=== PATIENT | female | born 1990 | race Caucasian/White ===

== ENCOUNTER → 2016-12-17 | Outpatient (REF) | payer BC | LOC: M LAB REF 09:54 | PROVIDERS: ATTEND Physician Assistant | DX: R30.0 Dysuria (principal) ==

== ENCOUNTER → 2017-01-03 | Outpatient (REF) | payer BC | LOC: M LAB REF 09:41 | PROVIDERS: ATTEND Physician Assistant | DX: R30.0 Dysuria (principal) ==

== ENCOUNTER → 2017-10-03 | Outpatient (CLI) | payer BC | LOC: M ADAMS 14:35 | DX: M25.762 Osteophyte, left knee (principal) | CPT/HCPCS: 73564 ==

== ENCOUNTER → 2018-12-25 | Outpatient (REF) | payer BC | LOC: M LAB REF 11:45 | PROVIDERS: ATTEND Nurse Practitioner Family | DX: N39.0 Urinary tract infection, site not specified (principal) ==